=== PATIENT | female | born 1995 | race Caucasian/White ===

== ENCOUNTER 2018-12-19 15:05 | Emergency (ER) | payer BC ==
[2018-12-19 15:35] VITALS: BP 120/74; PULSE 63; TEMP 98; BMI 20.7
--- NOTE | 2018-12-19 15:56 | PDOC ---
History of Present Illness - General Chief Complaint: Palpitations Stated Complaint: PALPITATION Time Seen by Provider: 12/19/18 15:08 History Source: Patient Exam Limitations: No Limitations - History of Present Illness Initial Comments: 12/19/18 15:47 23 yo F with a hx of palpitations presents to the emergency department with palpitations that occurred at approximately 1:15 pm while at rest with associative lightheadedness. Per the patient, she denies the following associative symptoms: chest pain, SOB, nausea, vomiting, dizziness, headaches, and back pain. Currently she is asymptomatic. In the past, she has had multiple syncopal episodes that involved a cardiology work up when she was in the 8th grade; negative work up was determined. The patient states she was able to control her pre-syncopal prodromes which includes nausea and lightheadedness. She feels the palpitations when she is completely at rest and has improvement in symptoms when she is exercising. Denies syncope after exertional events. Denies familial cardiac hx. Denies members of her family having early expirations secondary to cardiac causes. Denies the following:fevers, chills, abdominal pain, dysuria, hematuria, diarrhea, recent travel, recent surgeries, hx of DVT/PE, ingestion of drugs, urinary urgency, urinary frequency, constipation, and diarrhea and leg pain/swelling. Allergies: NKDA Shx: None Meds: None Social: Denies tobacco, alcohol, and substance abuse. Past History - Past Medical History Allergies/Adverse Reactions: Allergies Allergy/AdvReac Type Severity Reaction Status Date / Time No Known Allergies Allergy Unverified 12/19/18 15:07 Home Medications: Ambulatory Orders NK [No Known Home Medication] 12/19/18 COPD: No Other medical history: DENIES - Psycho Social/Smoking Cessation Hx Smoking History: Never smoked Information on smoking cessation initiated: No Hx Alcohol Use: No Drug/Substance Use Hx: No Review of Systems - Review of Systems Able to Perform ROS?: Yes Is the patient limited Korean proficient: No Constitutional: No: Chills, Diaphoresis, Fever, Weakness HEENTM: No: Eye Pain, Ear Pain, Nose Pain, Throat Pain, Mouth Pain Respiratory: No: Cough, Shortness of Breath, Hemoptysis Cardiac (ROS): Yes: Lightheadedness, Palpitations. No: Chest Pain, Syncope, Chest Tightness ABD/GI: No: Constipated, Diarrhea, Nausea, Rectal Bleeding, Vomiting, Tarry Stools : No: Burning, Dysuria, Hematuria, Incontinence Musculoskeletal: No: Back Pain, Joint Pain, Neck Pain Integumentary: No: Bruising, Erythema, Rash Neurological: No: Headache, Numbness, Tingling, Tremors Psychiatric: No: Change in Appetite Endocrine: No: Increased Hunger, Unexplained Weight Gain Hematologic/Lymphatic: No: Anemia *Physical Exam - Vital Signs Last Vital Signs Temp Pulse Resp BP Pulse Ox 98 F 63 18 120/74 100 12/19/18 15:07 12/19/18 15:07 12/19/18 15:07 12/19/18 15:07 12/19/18 15:07 - Physical Exam General Appearance: Yes: Nourished, Appropriately Dressed. No: Apparent Distress, Intoxicated HEENT: positive: EOMI, JOSIE, Normal ENT Inspection, Normal Voice, Symmetrical, TMs Normal, Pharynx Normal, Hearing Grossly Normal. negative: Pale Conjunctivae , Photophobia, Scleral Icterus (R), Scleral Icterus (L), Muffled/Hoarse voice, Pharyngeal Erythema, Tonsillar Exudate, Tonsillar Erythema, Excessive drooling Neck: positive: Trachea midline, Supple. negative: Tender, Lymphadenopathy (R) , Lymphadenopathy (L), Tender lateral, Tender midline Respiratory/Chest: positive: Lungs Clear, Normal Breath Sounds. negative: Chest Tender, Respiratory Distress, Accessory Muscle Use, Crackles, Rales, Rhonchi, Stridor, Wheezing Cardiovascular: positive: Regular Rhythm, Regular Rate, S1, S2. negative: Systolic Murmur Gastrointestinal/Abdominal: positive: Normal Bowel Sounds, Flat, Soft. negative : Tender, Distended, Guarding, Rebound, Tenderness Lymphatic: negative: Adenopathy Musculoskeletal: positive: Normal Inspection. negative: CVA Tenderness, Vertebral Tenderness Extremity: positive: Normal Capillary Refill, Normal Inspection, Normal Range of Motion. negative: Tender, Swelling, Calf Tenderness Integumentary: positive: Normal Color, Dry, Warm. 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 negative: Numbness, Sensory Deficit ED Treatment Course - LABORATORY CBC & Chemistry Diagram: 12/19/18 16:41 12/19/18 16:41 Medical Decision Making - Medical Decision Making 23 yo F with a hx of palpitations presents to the emergency department with palpitations that occurred at approximately 1:15 pm while at rest with associative lightheadedness. Initial vitals: Initial Vital Signs Temp Pulse Resp BP Pulse Ox 98 F 63 18 120/74 100 12/19/18 15:07 12/19/18 15:07 12/19/18 15:07 12/19/18 15:07 12/19/18 15:07 Work up: patient presents with a previous cardiac history in childhood with hx of syncope and now presenting with palpitations. EKG was obtained and significant finding noted was a CT interval of 398 ms. no other significant findings. NSR with 1st degree AV block . Laboratory Tests 12/19/18 12/19/18 12/19/18 16:41 16:41 16:41 WBC 5.4 RBC 3.85 Hgb 11.9 Hct 35.6 MCV 92.4 MCH 30.8 MCHC 33.3 RDW 13.5 Plt Count 304 MPV 8.6 Absolute Neuts (auto) 2.8 Neutrophils % 51.0 Lymphocytes % 37.9 Monocytes % 9.1 Eosinophils % 1.3 Basophils % 0.7 Sodium 136 Potassium 4.0 Chloride 105 Carbon Dioxide 25 Anion Gap 6 L BUN 14.0 Creatinine 1.0 Est GFR (CKD-EPI)AfAm 91.96 Est GFR (CKD-EPI)NonAf 79.35 Random Glucose 101 Calcium 9.1 Total Bilirubin 0.4 AST 20 ALT 13 Alkaline Phosphatase 43 L Total Protein 6.9 Albumin 4.3 Urine HCG, Qual Negative ddx for severe 1st degree AV block include electrolyte abnormality, NJ, hyperkalemia, and increased vagal tone and . No delta waves noted for suspected wpw. no ecg findings of brugaga noted. Patient is not . K is within normal limits and no other electrolyte disturbance. Unlikely to have had NJ in the past based on EKG findings. Patient's history of syncope with the prodromal sequence is consistent with increased vagal tone. Patient to be discharged as she has not had another episode in the department and advised to follow up with cardiology for follow up management. Dispo; Discharge Discharge - Discharge Information Problems reviewed: Yes Clinical Impression/Diagnosis: Palpitations, First degree AV block, Lightheaded Condition: Stable Disposition: HOME - Follow up/Referral Referrals: Tanner Leyva MD [Staff Physician] - - Patient Discharge Instructions Patient Printed Discharge Instructions: DI for Palpitations Additional Instructions: You presented to the emergency department today for palpitations. Your blood work was normal. Your EKG showed a first-degree AV block, which is considered benign. Given your palpitations, however, we do recommend follow-up with a property management coordinator. You may follow-up with the property management coordinator you have seen in the past , or a referral has been included in case this is more convenient. Return to the emergency department if you have any new, worsening or concerning symptoms. - Post Discharge Activity
[2018-12-19 17:08] LABS: BASO % 0.7 % (0-2.0); EOS % 1.3 % (0-4.5); HEMATOCRIT 35.6 % (32.4-45.2); HEMOGLOBIN 11.9 GM/dl (10.7-15.3); LYMPH % 37.9 % (8-40); MCH 30.8 pg (25.7-33.7); MCHC 33.3 g/dl (32.0-36.0); MEAN CELL VOLUME 92.4 fl (80-96); MEAN PLT VOLUME 8.6 fl (7.5-11.1); MONO % 9.1 % (3.8-10.2); PLATELET COUNT 304 K/MM3 (134-434); RBC 3.85 M/mm3 (3.60-5.2); RDW 13.5 % (11.6-15.6); WHITE BLOOD COUNT 5.4 K/mm3 (4.0-10.8)
--- NOTE | 2018-12-19 17:09 | PDOC ---
Attending Attestation - Resident Resident Name: Tim Jones - ED Attending Attestation I have performed the following: I have examined & evaluated the patient, The case was reviewed & discussed with the resident, I agree w/resident's findings & plan, Exceptions are as noted - HPI HPI: 12/19/18 17:37 23-year-old female with a past medical history of syncope presents the emergency department today with a less than 1 minute episode of palpitations while seated in an auditorium, associated with lightheadedness. She denies any associated chest pain, shortness of breath. She reports the symptoms resolved on their own. She denies any presyncopal symptoms or blurry vision. She reports multiple episodes of syncope in the past that have been preceded by nausea, lightheadedness and tunnel vision. She had a work-up for these episodes when she was in eighth grade by a camp advisor that was reportedly normal. Patient reports she has been in her usual state of good health. She denies any palpitations associated with those episodes. She denies any recent fevers, chills, nausea, vomiting, diarrhea, abdominal pain, lower extremity edema, calf tenderness or pain. - Physicial Exam PE: 12/19/18 17:42 Agree with resident exam - Medical Decision Making 12/19/18 17:42 23yo F presents to the ED with resolved episode of palpitations and lightheadedness that lasted <1 minute Currently asymptomatic Vitals wnl EKG with 1st degree AV block, otherwise no prolonged QT, brugada waves, delta waves Unclear etiology of symptoms, but labs were sent to r/o metabolic causes which were wnl Pt asymptomatic throughout time in ED, she is clinically stable for DC with cardiology f/u for possible holter I discussed the physical exam findings, ancillary test results and final diagnoses with the patient. I answered all of the patient's questions. The patient was satisfied with the care received and felt comfortable with the discharge plan and treatment plan. The patient will call their primary care physician within 24 hours to arrange follow-up and will return to the Emergency Department with any new, persistent or worsening symptoms. Discharge - Discharge Information Problems reviewed: Yes Clinical Impression/Diagnosis: Palpitations, First degree AV block, Lightheaded Condition: Stable Disposition: HOME - Admission No - Follow up/Referral Referrals: Tanner Leyva MD [Staff Physician] - - Patient Discharge Instructions Patient Printed Discharge Instructions: DI for Palpitations Additional Instructions: You presented to the emergency department today for palpitations. Your blood work was normal. Your EKG showed a first-degree AV block, which is considered benign. Given your palpitations, however, we do recommend follow-up with a camp advisor. You may follow-up with the camp advisor you have seen in the past , or a referral has been included in case this is more convenient. Return to the emergency department if you have any new, worsening or concerning symptoms. - Post Discharge Activity
[2018-12-19 17:17] LABS: ALBUMIN 4.3 g/dl (3.4-5.0); BILIRUBIN,TOTAL 0.4 mg/dl (0.2-1); CALCIUM 9.1 mg/dl (8.5-10); TOT PROT 6.9 g/dl (6.4-8.2)
--- NOTE | 2018-12-20 12:41 | EKG ---
Test Reason : Blood Pressure : / mmHG Vent. Rate : 069 BPM Atrial Rate : 069 BPM P-R Int : 398 ms QRS Dur : 086 ms QT Int : 412 ms P-R-T Axes : 046 085 059 degrees QTc Int : 441 ms SINUS RHYTHM WITH 1ST DEGREE A-V BLOCK OTHERWISE NORMAL ECG NO PREVIOUS ECGS AVAILABLE Confirmed by EKTA ARANA, MARGUERITE ([id number]) on 12/20/2018 12:40:46 PM Referred By: MD PIERCE Confirmed By:MARGUERITE DASH MD
== END 2018-12-19 18:02 | disposition home or self-care (01) ==
LOC: FER 15:05
DX: I44.0 Atrioventricular block, first degree (principal); R00.2 Palpitations; R42 Dizziness and giddiness; R55 Syncope and collapse
CPT/HCPCS: 36415; 80053; 84703; 85025; 93005; 99283-25